=== PATIENT | female | born 1970 | race Caucasian/White ===

== ENCOUNTER 2018-12-22 21:39 | Emergency (ER) | payer OTHER ==
[~2018-12-22] VITALS: Ht 160 cm; Wt 81.6 kg
[2018-12-22 21:40] VITALS: BP 141/83
--- NOTE | 2018-12-22 21:40 | NUR ---
PATIENT TRIAGED, VSS, PT ON BED DELAY AT THIS TIME.
--- NOTE | 2018-12-22 22:40 | NUR ---
PT JOHN BLS TO ER BED 05
--- NOTE | 2018-12-22 22:49 | NUR ---
48/F BIBA FROM HOME, C/O SUDDNE ONSET R FLANK/LOWER BACK PAIN, RADIATING TO R SUPRAPUBIC, X3 HRS WHILE WALKING IN THE MARKET. PT REPORTS URGE TO URINATE BUT UNABLE TO ALL DAY TODAY. PT STATED THAT SHE HAD A KIDNEY INFECTION 3 MONTHS AGO, DID NOT FINISH RX KEFLEX. AOX4, GCS 15, AMBULATORY, RR EVEN AND UNLABORED. DENIES HX OR RX. PREHOSPITAL 50MCG FENTANYL IVP AND 4MG ZOFRAN IVP VIA L HANDS 20G
[2018-12-22] MEDS ORDERED: KETOROLAC 30 MG/ML VIAL IVP ONE (23:00)
[2018-12-22] MEDS ORDERED: NACL 0.9% 1,000 ML IV ONE (23:00)
[2018-12-22 23:21] LABS: BASOPHILS # (AUTO) 0.1 K/uL (0.00-0.22); BASOPHILS % (AUTO) 0.7 % (0.0-2.0); EOSINOPHILS # (AUTO) 0.1 K/uL (0-0.4); EOSINOPHILS % (AUTO) 0.9 % (0.0-4.0); HEMATOCRIT 40.5 % (36-48); HEMOGLOBIN 13.4 g/dL (12.0-16.0); LYMPHOCYTES # (AUTO) 1.4 K/uL (2.5-16.5); MEAN CORPUSCULAR HEMOGLOBIN 30 pg (27-31); MEAN CORPUSCULAR HGB CONC 33 g/dL (33-37); MEAN CORPUSCULAR VOLUME 89.8 fL (80-94); MONOCYTES # (AUTO) 0.5 K/uL (0.8-1.0); PLATELET COUNT (AUTO) 321 K/uL (140-450); RED BLOOD CELL COUNT(AUTO) 4.51 MIL/uL (4.20-5.40); WHITE BLOOD COUNT (AUTO) 15.1 K/uL (4.8-10.8)
[2018-12-22 23:34] LABS: APPEARANCE,URINE CLOUDY (CLEAR); BILIRUBIN,URINE NEGATIVE (NEGATIVE); BLOOD, URINE 2+ (NEGATIVE); COLOR,URINE YELLOW (YELLOW); LEUKOCYTE ESTERASE ,URINE NEGATIVE (NEGATIVE); NITRITE, URINE NEGATIVE (NEGATIVE); UGLUCOSE NEGATIVE (NEGATIVE)
[2018-12-22 23:35] LABS: ALBUMIN 3.5 g/dL (3.4-5.0); ANION GAP 12.7 (8-16); CARBON DIOXIDE 28.8 mmol/L (21-32); POTASSIUM 4.5 mmol/L (3.5-5.1); TOTAL BILIRUBIN 0.2 mg/dL (0.0-1.0)
[2018-12-22 23:40] LABS: LYMPHOCYTES % (AUTO) 9.4 % (20.5-51.1)
[2018-12-23 00:10] LABS: RBC,URINE 11-20 (MOD) /HPF (0-5)
--- NOTE | 2018-12-23 00:24 | NUR ---
PT LAYING IN BED, RR EVEN AND UNLABORED. REPORTS IMPROVEMENT IN FLANK PAIN. VSS. ALL NEEDS MET.
[2018-12-23] MEDS ORDERED: cefTRIAXone 2,000 MG in DEXTROSE 5% 100 ML IV ONE (00:35)
[2018-12-23] MEDS ORDERED: cefTRIAXone 2,000 MG VIAL ONE (00:53)
--- NOTE | 2018-12-23 01:31 | NUR ---
PT LAYING IN BED, FAMILY/FRIEND AT BEDSIDE. PT REPORTS 2/10 R FLANK SORENESS, REPORTS IMPROVEMENT. REPORTS BEING ABLE TO URINATE LARGE AMOUNT AND RELIEF. VSS. ALL NEEDS MET AT THIS TIME.
[2018-12-23 01:42] VITALS: BP 111/73
--- NOTE | 2018-12-23 01:42 | NUR ---
Patient discharged with v/s stable. Written and verbal after care instructions given and explained by Dr. Frye. Patient alert, oriented and verbalized understanding of instructions. Ambulatory with steady gait. All questions addressed prior to discharge by Dr. Frye. ID band removed. Patient advised to follow up with PMD by Dr. Frye. Rx of CIPRO, NAPROSYN given by Dr. Frye. Patient educated on indication of medication including possible reaction and side effects by Dr. Frye. Opportunity to ask questions provided and answered by Dr. Frye.
== END 2018-12-23 01:42 | disposition home or self-care (01) ==
LOC: MED 21:39
DX: N10 Acute pyelonephritis (principal); Z87.442 Personal history of urinary calculi
CPT/HCPCS: 36415; 74176; 80053; 81001; 81002; 81025; 85025; 87086; 96365; 96375; 99284; J0696; J1885; J7030

== ENCOUNTER 2019-01-28 08:41 | Emergency (ER) | payer OTHER ==
[~2019-01-28] VITALS: Ht 157.5 cm; Wt 90.7 kg
[2019-01-28 08:53] VITALS: BP 125/79
--- NOTE | 2019-01-28 08:57 | NUR ---
PT WHEELCHAIRED TO ER BED 08
[2019-01-28] MEDS ORDERED: KETOROLAC 60 MG/2 ML VIAL IM ONE (09:05)
--- NOTE | 2019-01-28 09:12 | NUR ---
C/O ACHING L KNEE PAIN 03/25 STARTING 1 DAY AGO AFTER GETTING INTO A LIFTED TRUCK. PT STATES SHE HEARD A "POP" NOISE AND WAS THEN UNABLE TO BEAR WEIGHT ON L KNEE. MILD SWELLING NOTED TO L KNEE, TENDERNESS UPON PALPATION. NO OBVIOUS DEFORMITIES, NO REDNESS NOTED. PT PROVIDED W/ PILLOWS TO PROP L KNEE UP. BED IN LOW POSITION.
--- NOTE | 2019-01-28 09:18 | NUR ---
ERMD AT BEDSIDE
--- NOTE | 2019-01-28 09:24 | NUR ---
EMT AT BEDSIDE APPLYING BRACE
[2019-01-28 09:44] VITALS: BP 125/79
--- NOTE | 2019-01-28 09:44 | NUR ---
Patient discharged with v/s stable. Written and verbal after care instructions given and explained. Patient alert, oriented and verbalized understanding of instructions. Ambulatory with crutches. All questions addressed prior to discharge. ID band removed. Patient advised to follow up with PMD. Rx of norco & motrin given. Patient educated on indication of medication including possible reaction and side effects. Opportunity to ask questions provided and answered. Knee brace applied by Red EMT, m/s functions intact, pedal pulses +2.
== END 2019-01-28 09:44 | disposition home or self-care (01) ==
LOC: MED 08:41
DX: M25.561 Pain in right knee (principal)
CPT/HCPCS: 29505; 96372; 99283; J1885

== ENCOUNTER 2019-03-12 06:23 | Emergency (ER) | payer OTHER ==
[~2019-03-12] VITALS: Ht 160 cm; Wt 85.7 kg
[2019-03-12 06:25] VITALS: BP 145/89
--- NOTE | 2019-03-12 06:25 | NUR ---
PT AMBULATORY TO BED
--- NOTE | 2019-03-12 06:25 | NUR ---
49/F PRESENTS TO ED, C/O URINARY RETENTION SINCE YESTERDAY. REPORTS 04/25 CONSTANT TIGHTENING-LIKE R LOWER BACK PAIN, X4 HRS. DENIES FEVER/CHILLS, N/V/D, CONSTIPATION OR DYSURIA. DENIES TRAUMA/INJURY, TENDER TO TOUCH, NO BRUISING/SWELLING NOTED. AOX4, SKIN NORMAL WARM AND DRY, RR EVEN AND UNLABORED, IN MODERATE AMOUNT OF PAIN DISTRESS. HX KIDNEY STONES (3-4 MONTHS AGO)
[2019-03-12] MEDS ORDERED: NACL 0.9% 1,000 ML IV ONE ×2 (06:44→07:24)
--- NOTE | 2019-03-12 06:44 | NUR ---
PT ABLE TO COLLECT VERY SMALL AMOUNT OF URINE
[2019-03-12] MEDS ORDERED: KETOROLAC 30 MG/ML VIAL IVP ONE (06:45)
[2019-03-12] MEDS ORDERED: ONDANSETRON 4 MG/2 ML VIAL IVP ONE (06:45)
--- NOTE | 2019-03-12 06:45 | NUR ---
DR GASPAR AT BEDSIDE
[2019-03-12] MEDS ORDERED: PHENAZOPYRIDINE 100 MG TAB PO ONE (06:50)
--- NOTE | 2019-03-12 07:00 | NUR ---
Pt report given to TALIA MARIE. Transfer of care at this time.
[2019-03-12] MEDS ORDERED: NACL 0.9% 1,000 ML IV SCH (07:24)
[2019-03-12] MEDS ORDERED: MORPHINE SULFATE 4 MG/ML SYR IVP ONE (07:25)
[2019-03-12] MEDS ORDERED: GLYCOPYRROLATE 0.2 MG/ML VIAL IV ONE (07:25)
[2019-03-12] MEDS ORDERED: METOCLOPRAMIDE 10 MG/2 ML INJ VIAL IVP ONE (07:25)
[2019-03-12 07:45] LABS: BASOPHILS # (AUTO) 0.1 K/uL (0.00-0.22); BASOPHILS % (AUTO) 0.6 % (0.0-2.0); EOSINOPHILS # (AUTO) 0.3 K/uL (0-0.4); EOSINOPHILS % (AUTO) 2.6 % (0.0-4.0); HEMATOCRIT 39.6 % (36-48); HEMOGLOBIN 13.1 g/dL (12.0-16.0); LYMPHOCYTES % (AUTO) 19.8 % (20.5-51.1); MEAN CORPUSCULAR HEMOGLOBIN 30 pg (27-31); MEAN CORPUSCULAR HGB CONC 33 g/dL (33-37); MEAN CORPUSCULAR VOLUME 89.6 fL (80-94); MONOCYTES # (AUTO) 0.5 K/uL (0.8-1.0); NEUTROPHILS # (AUTO) 7.2 K/uL (1.8-7.7); PLATELET COUNT (AUTO) 296 K/uL (140-450); RED BLOOD CELL COUNT(AUTO) 4.42 MIL/uL (4.20-5.40); RED CELL DISTRIBUTION WIDTH 13.3 % (11.6-13.7)
[2019-03-12 07:50] LABS: ALBUMIN 3.3 g/dL (3.4-5.0); ANION GAP 10.9 (8-16); CARBON DIOXIDE 27.3 mmol/L (21-32); CREATININE 1.1 mg/dL (0.6-1.3); POTASSIUM 4.2 mmol/L (3.5-5.1); TOTAL BILIRUBIN 0.3 mg/dL (0.0-1.0)
--- NOTE | 2019-03-12 08:23 | NUR ---
INSERTED 16 FR/10 ML ASHER CATHETER ORDERED. CHAPERONED BY YARD FOREMAN. PT TOLERATED WELL. INTACT AND PATENT WITH YELLOW URINE OUTPUT VIA GRAVITY.
[2019-03-12 08:30] LABS: APPEARANCE,URINE HAZY (CLEAR); BILIRUBIN,URINE NEGATIVE (NEGATIVE); BLOOD, URINE 3+ (NEGATIVE); COLOR,URINE YELLOW (YELLOW); LEUKOCYTE ESTERASE ,URINE TRACE (NEGATIVE); NITRITE, URINE POSITIVE (NEGATIVE); UGLUCOSE NEGATIVE (NEGATIVE)
--- NOTE | 2019-03-12 08:30 | NUR ---
PT RESTING COMFORTABLY IN HER BEDSDE. URINE COLLECTED FROM ASHER. NO DISTRESS NOTED. PAIN 6/10 AT THIS TIME.
[2019-03-12 08:49] LABS: RBC,URINE 11-20 (MOD) /HPF (0-5)
--- NOTE | 2019-03-12 09:00 | NUR ---
CALLED [employer] FOR PT BREAKFAST , LEFT VOICE MAIL . DR. JOSH VIRAMONTES TO GIVE FOOD.
[2019-03-12] MEDS ORDERED: LEVOFLOXACIN 500 MG/D5W PREMIX 100 ML IV ONE (09:10)
--- NOTE | 2019-03-12 09:25 | NUR ---
Dr. Bobby re-evaluating patient at bedside.
[2019-03-12] MEDS ORDERED: METH500T14 PO (09:48)
--- NOTE | 2019-03-12 10:00 | NUR ---
PT INFORMED THAT WILL BE ADMITTED TO HOSPITAL . ANNA WITH IT. ABX IVPB INFUSING WELL. NO DISTRESS NOTED. LYING COMFORTABLY IN HER BED.
--- NOTE | 2019-03-12 10:20 | NUR ---
PROVIDED SANDWICH AND JUICE TO PT.
--- NOTE | 2019-03-12 11:25 | NUR ---
CALLED [facility] KELLER [phone], GAVE REPORT TO CYNTHIA CHRISTIANSEN. UPDATED HER ON PTS VS . PT NOTIFIED OF HER TRANSFER PLAN. OAKY WITH IT. PT ASKING OF DISCOMFORT WITH ASHER CATHETER, ASKING IF CAN BE TAKEN OUT. INFORMED PT THAT MD WILL BE NOTIFIED.
--- NOTE | 2019-03-12 11:35 | NUR ---
PT ASKING TO DC FOLYE CATHETER, DR. APONTE NOTIFIED, ORDERED TO DC ASHER CATHETER. CYNTHIA BERGMAN DISCONTINUED ASHER CATHETER.
--- NOTE | 2019-03-12 11:48 | NUR ---
[facility] at bedside for transfer.
[2019-03-12 11:55] VITALS: BP 114/59
--- NOTE | 2019-03-12 11:55 | NUR ---
Patient to be transferred to [facility]. Is being transferred due to . Receiving facility has accepting physician and available space. ER physician has signed transfer form. Patient or responsible alliance party has agreed to transfer and signed form. Patient belongings inventoried and will be sent with patient. Copy of nursing notes, lab reports, EKG, Physicians Orders and X-rays to be sent with patient. Report called to at receiving facility. ambulance service has been called for transfer. ETA is .
--- NOTE | 2019-03-13 12:14 | NUR ---
Late entry. Confirmed with RN the 1000ml 0.9 NS IV completed at 0836.
== END 2019-03-12 11:50 | disposition short-term general hospital (02) ==
LOC: MED 06:23
DX: N20.1 Calculus of ureter (principal); N12 Tubulo-interstitial nephritis, not specified as acute or chronic; Z87.442 Personal history of urinary calculi; Z79.899 Other long term (current) drug therapy
CPT/HCPCS: 36415; 74176; 80053; 81001; 81025; 83690; 85025; 87086; 96361; 96365; 96375; 99285; J1885; J1956; J2270; J2405; J2765; J3490; J7030; 99284

== ENCOUNTER 2023-01-01 15:55 | Emergency (ER) | payer MEDICAID, OTHER ==
[~2023-01-01] VITALS: Ht 162.6 cm; Wt 77.1 kg
[~2023-01-01 15:55] MED LIST: METH-1681 PO
[2023-01-01 16:24] VITALS: BP 137/80
--- NOTE | 2023-01-01 17:20 | NUR ---
PT AMBULATED TO BED 11
[2023-01-01] MEDS ORDERED: FAMOTIDINE 20 MG/2 ML VIAL IVP ONE (18:15)
[2023-01-01] MEDS ORDERED: ONDANSETRON 4 MG/2 ML VIAL IVP ONE (18:15)
[2023-01-01] MEDS ORDERED: NACL 0.9% 1,000 ML IV ONE (18:15)
[2023-01-01] MEDS ORDERED: KETOROLAC 15 MG/ML VIAL IVP ONE (18:40)
--- NOTE | 2023-01-01 18:41 | NUR ---
ATTEMPTED TO COLLECT URINE. PATIENT STATES SHE CANNOT PROVIDE AT THIS MOMENT, WILL CHECK BACK AT A LATER TIME.
[2023-01-01] MEDS ORDERED: KETOROLAC 15 MG/ML VIAL ONE (18:45)
[2023-01-01 18:50] LABS: BASOPHILS # (AUTO) 0.1 K/uL (0.00-0.22); BASOPHILS % (AUTO) 0.8 % (0.0-2.0); EOSINOPHILS # (AUTO) 0.1 K/uL (0-0.4); EOSINOPHILS % (AUTO) 0.9 % (0.0-4.0); HEMATOCRIT 38.3 % (36-48); HEMOGLOBIN 12.9 g/dL (12.0-16.0); LYMPHOCYTES # (AUTO) 1.2 K/uL (2.5-16.5); LYMPHOCYTES % (AUTO) 14.9 % (20.5-51.1); MEAN CORPUSCULAR HEMOGLOBIN 30 pg (27-31); MEAN CORPUSCULAR HGB CONC 34 g/dL (33-37); MONOCYTES # (AUTO) 0.3 K/uL (0.8-1.0); MONOCYTES % (AUTO) 3.5 % (1.7-9.3); NEUTROPHILS # (AUTO) 6.6 K/uL (1.8-7.7); NEUTROPHILS % (AUTO) 79.9 % (42.2-75.2); PLATELET COUNT (AUTO) 264 K/uL (140-450); RED BLOOD CELL COUNT(AUTO) 4.35 MIL/uL (4.20-5.40); RED CELL DISTRIBUTION WIDTH 13.6 % (11.6-13.7); WHITE BLOOD COUNT (AUTO) 8.2 K/uL (4.8-10.8)
[2023-01-01 19:13] LABS: GLUCOSE 110 mg/dL (74-106)
[2023-01-01 19:22] LABS: ALBUMIN 3.3 g/dL (3.4-5.0); ANION GAP 8.3 (8-16); ASPARTATE AMINOTRANSFERASE 21 U/L (15-37); CARBON DIOXIDE 29.7 mmol/L (21-32); CHLORIDE 105 mmol/L (98-107); CREATININE 0.8 mg/dL (0.6-1.3); GFR ARICAN-AMERICAN 98 mL/min (>90); LIPASE 136 U/L (73-393); SODIUM SERUM 139 mmol/L (136-145); TOTAL BILIRUBIN 0.4 mg/dL (0.0-1.0); UREA NITROGEN, BLOOD 8 mg/dL (7-18)
--- NOTE | 2023-01-01 19:29 | NUR ---
swabs collected sent to lab
--- NOTE | 2023-01-01 20:11 | NUR ---
Pt assisted to restroom gait steady
--- NOTE | 2023-01-01 20:20 | NUR ---
Urine collected and sent to lab
--- NOTE | 2023-01-01 20:20 | NUR ---
urine walked to lab
[2023-01-01 20:28] LABS: BILIRUBIN,URINE NEGATIVE (NEGATIVE); BLOOD, URINE NEGATIVE (NEGATIVE); COLOR,URINE YELLOW (YELLOW); LEUKOCYTE ESTERASE ,URINE 2+ (NEGATIVE); NITRITE, URINE NEGATIVE (NEGATIVE); PH,URINE 6.5 (5.0-9.0); UGLUCOSE NEGATIVE (NEGATIVE)
[2023-01-01 20:33] LABS: APPEARANCE,URINE HAZY (CLEAR)
--- NOTE | 2023-01-01 20:35 | NUR ---
Pt c/o heartburn, ERMD made aware and orders received.
[2023-01-01] MEDS ORDERED: ALUMINUM HYD/MAG/SIMETHICONE 30 ML UDC PO ONE (20:40)
[2023-01-01 20:45] LABS: RBC,URINE NONE SEEN /HPF (0-5); WBC,URINE 80-100 /HPF (0-5)
[2023-01-01] MEDS ORDERED: ONDA-188 PO (20:53)
[2023-01-01] MEDS ORDERED: MAG-27 PO (20:53)
[2023-01-01] MEDS ORDERED: CEPH-588 PO (20:53)
[2023-01-01] MEDS ORDERED: cefTRIAXone 1,000 MG VIAL ONE (21:17)
[2023-01-01 22:20] VITALS: BP 118/57
--- NOTE | 2023-01-01 22:46 | NUR ---
Patient discharged with v/s stable. Written and verbal after care instructions given and explained. New rx keflex and mylanta. Patient verbalized understanding. Ambulatory with steady gait. Accompanied by girlfriend. All questions addressed prior to discharge. Advised to follow up with PMD.
== END 2023-01-01 22:46 | disposition home or self-care (01) ==
LOC: MED 15:55
DX: N39.0 Urinary tract infection, site not specified (principal); K29.70 Gastritis, unspecified, without bleeding; Z20.822 Contact with and (suspected) exposure to COVID-19; Z79.899 Other long term (current) drug therapy; Z79.2 Long term (current) use of antibiotics
CPT/HCPCS: 36415; 80053; 81001; 83690; 84484; 85025; 87086; 87426; 87804; 93005; 96361; 96365; 96375; 99284; J0696; J1885; J2405; J3490; J7030